=== PATIENT | female | born 1955 | race Caucasian/White ===

== ENCOUNTER 2016-12-20 11:02 | Emergency (ER) | payer SELFPAY ==
[~2016-12-20] VITALS: Ht 180.3 cm; Wt 94.6 kg
[2016-12-20 11:12] VITALS: BP 200/113; PULSE 68; RESP 16; TEMP 97.9; O2SAT 95
[2016-12-20] MEDS ORDERED: BUPIVACAINE HCL PF 0.5% 10 ML VIAL INFIL ONE (11:45)
[2016-12-20] MEDS ORDERED: TETANUS/DIPHTHERIA TOXOID ADULT 0.5 ML VIAL IM ONE (12:00)
[2016-12-20] MEDS ORDERED: TRAM50TA PO (12:31)
[2016-12-20] MEDS ORDERED: AUGM875T PO (12:38)
--- NOTE | 2016-12-20 12:38 | PD ---
HPI Chief Complaint: Bite or Sting Time Seen by Provider: 11:45 Travel History International Travel<30 days: No Contact w/Intl Traveler<30days: No Traveled to known affect area: No History of Present Illness HPI Patient is a 61-year-old female presenting to the emergency room evaluation of a dog bite to her left hand. Patient is a van owner operator, the dog is up-to-date with its vaccinations. Incident occurred approximately 1 hour prior to arrival , patient with urgent care center [facility] and was sent to emergency department for repair. She reports the pain is 6 out of 10 and describes as aching and sore. Patient denies any numbness or tingling. PFSH Past Medical History Medical History: Denies Significant Hx Tetanus Vaccination: Unknown Influenza Vaccination: No ?: Not Past Surgical History Surgical History: No Previous Surgery Social History Alcohol Use: No Tobacco Use: No Substance Use: No Allergies-Medications (Allergen,Severity, Reaction): Coded Allergies: Histamine H2 Receptor Antagonist (Verified Adverse Reaction, Severe, "SPEEDING", 12/20/16) Reported Meds & Prescriptions Reported Meds & Active Scripts Active Tramadol (Tramadol HCl) 50 Mg Tab 50 Mg PO Q6H PRN Review of Systems Except as stated in HPI: all other systems reviewed are Neg Musculoskeletal: Positive: Myalgias Skin: Positive Other (puncture wounds) Physical Exam Narrative GENERAL: Well-nourished, well-developed patient. SKIN: Warm and dry. 1.5 cm laceration to the dorsal aspect of the left hand over the first MCP, 1 cm puncture wound over the dorsal aspect of the left hand over the second MCP. HEAD: Normocephalic. EYES: No scleral icterus. No injection or drainage. NECK: Supple, trachea midline. No JVD or lymphadenopathy. CARDIOVASCULAR: Regular rate and rhythm without murmurs, gallops, or rubs. RESPIRATORY: Breath sounds equal bilaterally. No accessory muscle use. GASTROINTESTINAL: Abdomen soft, non-tender, nondistended. MUSCULOSKELETAL: No cyanosis, or edema. Full range of motion in left hand, rigors. Patient is neurovascularly intact, positive radial pulse, brisk with 3 second capillary refill. Motor function and sensation is intact. BACK: Nontender without obvious deformity. No CVA tenderness. Data Data Last Documented VS Vital Signs Date Time Temp Pulse Resp B/P Pulse Ox O2 Delivery O2 Flow Rate FiO2 12/20/16 11:12 97.9 68 16 200/113 95 Orders Bupivacaine Pf 0.5% Inj (Marcaine Pf 0.5 (12/20/16 11:45) Tetanus/Diphtheria Tox Adult (Tetanus/Di (12/20/16 12:00) MDM Medical Decision Making Medical Screen Exam Complete: Yes Emergency Medical Condition: Yes Interpretation(s) Vital Signs Date Time Temp Pulse Resp B/P Pulse Ox O2 Delivery O2 Flow Rate FiO2 12/20/16 11:12 97.9 68 16 200/113 95 Differential Diagnosis Laceration versus abrasion versus puncture wound versus other Narrative Course Patient is a 61-year-old female presenting to emergency department for evaluation of a dog bite that occurred just prior to arrival. Patient is neurovascularly intact. Tox up-to-date with immunizations. Patient's tetanus vaccine was updated emergency department today. Please see procedure report for laceration repairs. Patient will be placed on Augmentin prophylactically. She was encouraged return to emergency department for any new or worsening symptoms. Stitches will need be removed in 10 days. This can be performed at her primary doctor or at the emergency department. Patient verbalized understanding of instructions. Patient is stable for discharge. Procedures Procedure Narrative LACERATION LOCATION: Palmar aspect of left hand over the first MCP LENGTH: 1.5 cm NUMBER OF STITCHES/ANGELES: 5 stitches Patient wound is well visualized, no tendon involvement, no foreign body identified. REPAIR: The area of the laceration was prepped with Betadine and sterilely draped. The laceration was infiltrated with 0.5% bupivacaine. The wound was copiously irrigated and explored without evidence of foreign body, tendon injury or neurovascular injury. The wound was closed using 4-0 Prolene. This was a 1 layer repair. A sterile dressing was applied. The patient was advised to keep the dressing clean and dry. Patient tolerated the procedure well. LACERATION LOCATION: Dorsal aspect of left hand over the second MCP LENGTH: 1 cm NUMBER OF STITCHES/ANGELES: 2 stitches REPAIR: The area of the laceration was prepped with Betadine and sterilely draped. The laceration was infiltrated with 0.5% bupivacaine. The wound was copiously irrigated and explored without evidence of foreign body, tendon injury or neurovascular injury. The wound was closed using 4-0 Prolene. This was a 1 layer repair. A sterile dressing was applied. The patient was advised to keep the dressing clean and dry. Patient tolerated the procedure well. Diagnosis Primary Impression: Dog bite of hand Qualified Code: S61.452A - Dog bite of hand, left, initial encounter Additional Impressions: Puncture wound Laceration Referrals: Primary Care Physician 1 week Patient Instructions: Animal Bite (ED), Care For Your Stitches (ED), General Instructions, Laceration (ED), Puncture Wound (ED) Additional Instructions: Stitches will need to be removed in 10 days, this can be performed in the emergency department with her primary doctor Return to emergency department immediately for any new or worsening symptoms Complete full course of antibiotics as prescribed Do not drive or operate heavy machinery when taking narcotic pain medication Keep wound clean and dry, cover with nonocclusive dressing and topical antibiotic ointment Med/Other Pt SpecificInfo: Prescription(s) given Scripts Amoxicillin-Clavulanate (Augmentin)875-125 mg [id number] Mg PO BID #20 TAB Ref 0 not for use in CrCl <30 ml/min. Prov:Gudelia Wooten 12/20/16 Tramadol 50 Mg Tab50 Mg PO Q6H PRN (PAIN) #10 TAB Ref 0 Prov:Megan Estrada DO 12/20/16 Disposition: 01 DISCHARGE HOME Condition: Stable Gudelia Wooten Dec 20, 2016 12:38
== END 2016-12-20 12:50 | disposition home or self-care (01) ==
LOC: PHEFT 11:02
DX: S61.452A Open bite of left hand, initial encounter (principal); Z23 Encounter for immunization; W54.0XXA Bitten by dog, initial encounter; Y93.K3 Activity, grooming and shearing an animal; Y92.9 Unspecified place or not applicable; Y99.0 Civilian activity done for income or pay
CPT/HCPCS: 12001; 90471; 90714